=== PATIENT | female | born 1955 | race Caucasian/White ===

== ENCOUNTER 2021-04-18 09:12 | Observation (INO) ==
[2021-04-18] MEDS ORDERED: NS 0.9% 1000 ml BAG 1,000 ML IV ONE (09:25)
[2021-04-18 09:35] LABS: ABS Lymphocytes 1.8 10^3/ul (1.0-4.8); ABS Monocytes 0.4 10^3/ul (0-0.8); ABS Neutrophils 3.4 10^3/ul (1.5-7.7); Eosinophil % 0.8 %; Hematocrit 43 % (35-47); Hemoglobin 14.7 g/dL (12.0-16.0); Lymphocyte % 32.1 %; Mean Corpuscular HGB Conc 34 g/dL (31-36); Mean Corpuscular Hemoglobin 31 pg (27-31); Mean Corpuscular Volume 90 fL (80-97); Mean Platelet Volume 7.6 fL (7.4-10.4); Platelet Count 206 10^3/uL (150-450); Red Blood Count 4.79 10^6 /uL (3.70-4.87); Red Cell Distribution Width 14 % (10-15); White Blood Count 5.7 10^3/uL (3.5-10.8)
[2021-04-18] MEDS ORDERED: Iodixanol (CONTRAST) 320 MG/ML 100 ML SDV IV ONE (09:37)
[2021-04-18 09:49] LABS: ALT 17 U/L (7-52); AST 19 U/L (13-39); Albumin 4.3 g/dL (3.2-5.2); Albumin/Globulin Ratio 1.4 (1-3); Alkaline Phosphatase 57 U/L (35-149); Anion Gap 5 mmol/L (2-11); Blood Urea Nitrogen 12 mg/dL (6-24); CO2 Carbon Dioxide 28 mmol/L (22-32); Calcium 9.5 mg/dL (8.6-10.3); Chloride 105 mmol/L (101-111); Cholesterol 266 mg/dL; EGFR African American 93.3 (>60); EGFR Non-African American 77.1 (>60); Glucose 86 mg/dL (70-100); HDL Cholesterol 49.5 mg/dL; LDL Cholesterol 183 mg/dL; Sodium 138 mmol/L (135-145); Total Protein 7.3 g/dL (6.4-8.9); Triglycerides 166 mg/dL
[2021-04-18 09:50] LABS: Activated Partial Thrombo Time 24.2 seconds (26.0-38.0); INR 1.03 (0.82-1.09)
[2021-04-18 09:58] LABS: Urine Appearance Clear; Urine Bilirubin Negative (Negative); Urine Blood Negative (Negative); Urine Color Straw; Urine Glucose Negative (Negative); Urine Ketones Negative (Negative); Urine Nitrite Negative (Negative); Urine Protein Negative (Negative); Urine Specific Gravity 1.009 (1.002-1.030); Urine Urobilinogen Negative (Negative)
[2021-04-18] MEDS ORDERED: Magnesium Hydroxide LIQ 30 ML UDC PO PRN (11:52)
[2021-04-18] MEDS ORDERED: Enoxaparin 40 MG/0.4 ML SYR SUBCUT SCH ×2 (12:00→22:00)
[2021-04-18] MEDS ORDERED: Albuterol HFA INHALER 8 gm MDI INH PRN (12:04)
[2021-04-18] MEDS ORDERED: SPIRIVA Respimat (tiotropium) 2.5 mcg/inh Inhaler INH SCH (13:00)
[2021-04-18 15:32] LABS: Folate > 20.00 ng/mL (5.90-24.80)
[2021-04-18 15:33] LABS: Vitamin B12 296 pg/mL (180-914)
[2021-04-18 15:56] LABS: C Reactive Protein 2.65 mg/L (<8.01)
[2021-04-18 16:39] LABS: Erythrocyte Sed Rate 15 mm/Hr (0-29)
[2021-04-18] MEDS: Mometasone/Formoter 100/5 MDI INH SCH (20:12)
[2021-04-19] MEDS ORDERED: NS 0.9% 1000 ml BAG 1,000 ML IV SCH (08:45)
[2021-04-19] MEDS: Mometasone/Formoter 100/5 MDI INH SCH (08:49)
[2021-04-19 08:58] LABS: ABS Eosinophils 0.1 10^3/ul (0-0.6); ABS Lymphocytes 1.9 10^3/ul (1.0-4.8); ABS Monocytes 0.3 10^3/ul (0-0.8); ABS Neutrophils 3.1 10^3/ul (1.5-7.7); Eosinophil % 1.3 %; Hematocrit 45 % (35-47); Hemoglobin 15.4 g/dL (12.0-16.0); Lymphocyte % 34.6 %; Mean Corpuscular HGB Conc 34 g/dL (31-36); Mean Corpuscular Hemoglobin 31 pg (27-31); Mean Corpuscular Volume 90 fL (80-97); Nucleated Red Blood Cells % 0.1; Platelet Count 197 10^3/uL (150-450); Red Cell Distribution Width 14 % (10-15); White Blood Count 5.4 10^3/uL (3.5-10.8)
[2021-04-19] MEDS ORDERED: SPIRIVA Respimat (tiotropium) 2.5 mcg/inh Inhaler INH SCH (09:00)
[2021-04-19 09:20] LABS: Calcium 9.9 mg/dL (8.6-10.3); EGFR African American 97.8 (>60); EGFR Non-African American 80.8 (>60); Potassium 3.8 mmol/L (3.5-5.0)
[2021-04-19] MEDS ORDERED: Perflutren Lipid Microsphere 3 ML VIAL ONE (09:24)
[2021-04-19 14:36] VITALS: BP 137/67
[2021-04-20 16:34] LABS: Complement C3 133 mg/dL (75 - 175)
== END 2021-04-19 15:40 | disposition home or self-care (01) ==
LOC: MEDTELE 09:12 → ED 09:12 → MEDTELE 16:11
PROVIDERS: ADMIT Hospitalist; ATTEND Hospitalist